=== PATIENT | female | born 1960 | race Caucasian/White ===

== ENCOUNTER 2016-06-05 11:21 | Emergency (ER) | payer OTHER ==
[~2016-06-05 11:21] MED LIST: AUGMENTIN PO; BACTRIM DS TABL1 TA1 PO; CRESTOR10 MG PO; FLEXERIL10 MG PO; NAPROSYN-EC500 M1 PO; PERCOCET5/325 PO; PYRIDIUM100 MG PO; XANAX0.5 MG PO
== END 2016-06-05 12:15 | disposition home or self-care (01) ==
LOC: SED 11:21
DX: H61.23 Impacted cerumen, bilateral (principal); E78.5 Hyperlipidemia, unspecified; F41.9 Anxiety disorder, unspecified
CPT/HCPCS: 99282; 99283

== ENCOUNTER 2016-10-08 08:28 | Emergency (ER) | payer OTHER | END 2016-10-08 09:31 | disposition home or self-care (01) | LOC: SED 08:28 | DX: H10.32 Unspecified acute conjunctivitis, left eye (principal); R11.0 Nausea; R51 Headache; Z79.899 Other long term (current) drug therapy | CPT/HCPCS: 99282 ==